=== PATIENT | female | born 1985 | race Caucasian/White ===

== ENCOUNTER 2016-11-05 15:27 | Emergency (ER) | payer BC, OTHER ==
[~2016-11-05] VITALS: Ht 121.9 cm; Wt 66.0 kg
[~2016-11-05 15:27] MED LIST: ADVINUNK; ALBUAER2 INH; BCPILLS PO; CLX20 PO; VERAMIST; [UNRECOGNIZED DRUG - OTHER]
[2016-11-05 15:33] VITALS: TEMP 36.8; Ht 121.9 cm; Wt 66.0 kg
[2016-11-05] MEDS ORDERED: BUPR-267 PO (15:51)
[2016-11-05] MEDS ORDERED: ONDANSETRON INJ 2 MG/ML 2 ML VIAL IV STA (15:55)
[2016-11-05] MEDS ORDERED: SODIUM CHLORIDE 0.9% 1000ML 500 ML IV STA (15:55)
[2016-11-05] MEDS ORDERED: MoRPHine SULFATE 10 MG/ML CARP/VIAL IV PRN (16:00)
--- NOTE | 2016-11-05 16:05 | EMERGENCY ROOM VISIT NOTE ---
History Report prepared by Xiomara: Stan Oliveira Under the Supervision of: Dr. Lc Orantes M.D. First contact with patient: 15:48 Chief Complaint: CARDIAC ASSESSMENT Stated Complaint: CHEST PAIN History of Present Illness The patient is a 31 year old female who presents to the Emergency Room with complaints of persistent chest pain beginning early this morning. She states she woke with her pain around 0400 and took Tums and used her inhaler as she thought this was heartburn. She woke up again after 2 hours and vomited, and again took Tums and used her inhaler but with no relief of her symptoms. She rates her pain a 5/10 in severity but states it worsens with deep breaths or laying down. She notes her pain does not radiate. The patient denies any pain in her heart or anything unusual with her heart over the last few days She admits to having watery diarrhea 2 days ago, and still had diarrhea yesterday. She reports she had 10 bowel movements within 30 minutes, and describes her stool as clear or yellow. She admits to taking 1 antidiarrheal. She denies having any diarrhea today. The patient adds she had a headache yesterday and took 4 Tylenol. She notes she felt nauseated this morning, and has pain with swallowing. She denies any history of gallbladder issues or clots, but admits to a history of irritable bowel syndrome. She takes medications for her thyroid. Source of History: patient Onset: early this morning Position: chest Symptom Intensity: 5/10 in severity, but worsens Quality: other (chest pain) Timing: other (persistent) Modifying Factors (Worsening): other (deep breaths and lying down) Associated Symptoms: + diarrhea, + headache, + nausea Note: The patient has pain with swallowing. Review of Systems See HPI for pertinent positives & negatives. A total of 10 systems reviewed and were otherwise negative. Past Medical & Surgical Medical Problems: (1) History of IBS Family History No pertinent family history stated. Social History Smoking Status: Never Smoker Current/Historical Medications Scheduled Control Pills ( Control Pills), 1 TAB PO DAILY Bupropion Hcl (Bupropion Hcl Er), 15 MG PO QPM Cetirizine (Zyrtec), 10 MG PO QAM Fluticasone Propionate (Nasal) (Flonase Allergy Relief), 2 SPRAY SELENA QPM Levothyroxine Sodium (Synthroid), 75 MCG PO QAM Montelukast Sodium (Singulair), 10 MG PO QPM Multivit/Min/Iron/Fol Ac/Pren ( Vitamin), 1 TAB PO DAILY Omeprazole (Prilosec), 20 MG PO DAILY Ranitidine (Zantac), 150 MG PO BID Scheduled PRN Albuterol (Ventolin), 2 PUFFS INH QID PRN for SOB/Wheezing Oxycodone Ir (Roxicodone Ir), 1-2 TAB PO Q4H PRN for Pain Allergies Coded Allergies: No Known Allergies (Unverified , 11/05/16) Physical Exam Vital Signs Date Time Temp Pulse Resp B/P Pulse Ox O2 Delivery O2 Flow Rate FiO2 11/05/16 17:43 79 11/05/16 17:25 75 16 119/72 100 Room Air 11/05/16 16:12 97 Room Air 11/05/16 15:52 98 Room Air 11/05/16 15:33 36.8 87 20 126/82 97 Room Air Physical Exam GENERAL: Patient is in no acute distress. HEENT: No acute trauma, normocephalic atraumatic, mucous membranes moist, no nasal congestion, no scleral icterus. NECK: No stridor, no adenopathy, no meningismus, trachea is midline. LUNGS: Clear to auscultation bilaterally, no wheeze, no rhonchi, breath sounds equal. HEART: Without murmurs gallops or rubs, regular rate and rhythm. CHEST: Nontender chest wall. ABDOMEN: Soft, tenderness in epigastrium and right upper quadrant, bowel sounds positive, no hernias, no peritonitis. EXTREMITIES: No cyanosis or edema, full range of motion of all the joints without pain or difficulty, no signs for acute trauma. NEUROLOGIC: Oriented x 3, no acute motor or sensory deficits, no focal weakness. SKIN: No rash, no jaundice, no diaphoresis. Medical Decision & Procedures ER Provider Diagnostic Interpretation: X-ray results as stated below per interpretation by me and the radiologist: CHEST ONE VIEW PORTABLE FINDINGS: Lung volumes are normal. Lungs are clear. Pulmonary vascular is normal. Cardiac size is normal. Mediastinal contours are normal. Apparent hazy bibasilar opacities are likely artifactual. There is mild S-shaped scoliosis of the thoracolumbar spine. IMPRESSION: 1. No acute cardiopulmonary findings. 2. Mild S-shaped scoliosis of the thoracolumbar spine. Electronically signed by: Bennett Mccartney M.D. 11/05/2016 4:27 PM Dictated Date/Time: 11/05/2016 4:25 PM ABDOMINAL ULTRASOUND, RIGHT UPPER QUADRANT FINDINGS: Pancreas: The pancreatic tail is obscured by overlying bowel gas. The remaining portions of the pancreas are within normal limits. Liver: Unremarkable. Gallbladder: No gallbladder wall thickening. No gallstones. CBD: 4 mm. Right kidney: No hydronephrosis. IMPRESSION: No significant abnormality identified within the right upper quadrant. Electronically signed by: Rogelio Madrid M.D. 11/05/2016 5:11 PM Dictated Date/Time: 11/05/2016 5:09 PM Laboratory Results 11/05/16 16:05 11/05/16 16:05 Test 11/05/16 16:05 11/05/16 16:09 Red Blood Count 4.67 M/uL (4.2-5.4) Mean Corpuscular Volume 87.2 fL (80-100) Mean Corpuscular Hemoglobin 29.8 pg (25-34) Mean Corpuscular Hemoglobin Concent 34.2 g/dl (32-36) RDW Standard Deviation 41.0 fL (36.4-46.3) RDW Coefficient of Variation 12.8 % (11.5-14.5) Mean Platelet Volume 12.0 fL (7.4-10.4) Prothrombin Time 11.0 SECONDS (9.0-12.0) Prothromb Time International Ratio 1.0 (0.9-1.1) Activated Partial Thromboplast Time 28.5 SECONDS (21.0-31.0) Partial Thromboplastin Ratio 1.1 Anion Gap 11.0 mmol/L (3-11) Est Creatinine Clear Calc Drug Dose 65.2 ml/min Estimated GFR () 126.0 Estimated GFR (Non- 108.7 BUN/Creatinine Ratio 6.6 (10-20) Calcium Level 9.1 mg/dl (8.5-10.1) Total Bilirubin 1.1 mg/dl (0.2-1) Direct Bilirubin 0.2 mg/dl (0-0.2) Aspartate Amino Transf (AST/SGOT) 22 U/L (15-37) Alanine Aminotransferase (ALT/SGPT) 29 U/L (12-78) Alkaline Phosphatase 59 U/L (45-117) Troponin I < 0.015 ng/ml (0-0.045) Total Protein 7.2 gm/dl (6.4-8.2) Albumin 4.0 gm/dl (3.4-5.0) Lipase 61 U/L (73-393) Bedside D-Dimer 439 ng/mlFEU (0-450) Laboratory results reviewed by me. Medications Administered Medications (Trade) Dose Ordered Sig/Jocy Route Start Time Stop Time Status Last Admin Dose Admin Sodium Chloride (Nss 1000ml) 500 ml @ 999 mls/hr Q31M STAT IV 11/05/16 15:55 11/05/16 16:25 DC 11/05/16 16:08 999 MLS/HR Pantoprazole Sodium (Protonix Tab) 40 mg NOW STAT PO 11/05/16 17:44 11/05/16 17:45 DC 11/05/16 17:55 40 MG Ranitidine HCl (zANTac TAB) 150 mg NOW STAT PO 11/05/16 17:44 11/05/16 17:45 DC 11/05/16 17:55 150 MG ECG Indication: chest pain Rate (beats per minute): 88 Rhythm: normal sinus, other (possible old septal infarct) Findings: no acute ischemic change, no ectopy ED Course 1549: The patient was evaluated in room B5. A complete history and physical exam was performed. 1555: Ordered Zofran Inj 4 mg IV, and NSS 500 ml @ 999 mls/hr IV. 1600: Ordered Morphine Sulfate 4 mg IV. 1744: Ordered Ranitidine HCl 150 mg PO, and Protonix Tab 40 mg PO. 1800: Reevaluated the patient. Discussed results and discharge instructions: She verbalized understanding and agreement. The patient is ready for discharge. Medical Decision Differentials include cardiac ischemia, PE, gastritis, pancreatitis, biliary colic, viral illness, and acute cholecystitis. There is no leukocytosis or concerning anemia. No significant electrolyte abnormality, kidney failure, hepatitis or pancreatitis. D-dimer testing is negative. With a negative d-dimer and my low suspicion for PE, I will stop the workup for this diagnosis. Chest x-ray shows no free air, pneumothorax or mediastinal widening. There is no pneumonia. EKG shows a normal sinus rhythm, there is no acute ischemia. Cardiac enzyme testing times one is not suggestive of acute cardiac injury. Gallbladder ultrasound does not show gallstones or acute cholecystitis. The patient received IV saline, IV Zofran and IV morphine. She was given oral Protonix and oral Zantac. The patient's cardiac workup is unremarkable. She has had some diarrhea and stomach upset and now has some epigastric pain on exam. The pain is likely intestinal. She may be having some reflux/esophagitis. She is being discharged on Zantac and Prilosec. She was given a few pain pills to use as needed for breakthrough discomfort. She was encouraged to stick to a very plain and simple diet. If things are worsening, she should return for reassessment. [place] Drug Monitoring Program Search Results: patient reviewed within database, no issues identified Impression Primary Impression: Epigastric abdominal pain Scribe Attestation The scribe's documentation has been prepared under my direction and personally reviewed by me in its entirety. I confirm that the note above accurately reflects all work, treatment, procedures, and medical decision making performed by me. Departure Information Dispostion Home / Self-Care Prescriptions Oxycodone Ir (Roxicodone Ir) 5 Mg Tab 1-2 TAB PO Q4H Y for Pain, #8 TAB Prov: Lc Orantes M.D. 11/05/16 Omeprazole (Prilosec) 20 Mg Capcr 20 MG PO DAILY, #30 CAP Prov: Lc Orantes M.D. 11/05/16 Ranitidine (Zantac) 150 Mg Tab 150 MG PO BID for 14 Days, #28 TAB Prov: Lc Orantes M.D. 11/05/16 Patient Instructions A Signature Page, My [facility] Additional Instructions zantac 2x per day for 2 weeks prilosec daily for 1 month rest bland diet---gatorade, crackers, soup, toast return if worsening oxy ir 1 tab every 4 hours for severe pain lab testing and imaging all looked good today
[2016-11-05 16:12] VITALS: O2SAT 97
[2016-11-05 16:20] LABS: HEMATOCRIT 40.7 % (37-47); MEAN CELL VOLUME 87.2 fL (80-100); MEAN CORPUSCULAR HEMOGLOBIN 29.8 pg (25-34); MEAN CORPUSCULAR HGB CONC 34.2 g/dl (32-36); PLATELET COUNT 177 K/uL (130-400); RED BLOOD COUNT 4.67 M/uL (4.2-5.4); WHITE BLOOD COUNT 4.55 K/uL (4.8-10.8)
[2016-11-05 16:27] LABS: PARTIAL THROMBOPLASTIN RATIO 1.1
--- NOTE | 2016-11-05 16:29 | DIAGNOSTIC IMAGING REPORT ---
CHEST ONE VIEW PORTABLE CLINICAL HISTORY: Chest pain. COMPARISON STUDY: No previous studies for comparison. FINDINGS: Lung volumes are normal. Lungs are clear. Pulmonary vascular is normal. Cardiac size is normal. Mediastinal contours are normal. Apparent hazy bibasilar opacities are likely artifactual. There is mild S-shaped scoliosis of the thoracolumbar spine. IMPRESSION: 1. No acute cardiopulmonary findings. 2. Mild S-shaped scoliosis of the thoracolumbar spine. Electronically signed by: Bennett Mccartney M.D. 11/05/2016 4:27 PM Dictated Date/Time: 11/05/2016 4:25 PM
[2016-11-05 16:46] LABS: ALT/SGPT 29 U/L (12-78); AST/SGOT 22 U/L (15-37); BLOOD UREA NITROGEN 5 mg/dl (7-18); BUN/CREATININE RATIO 6.6 (10-20); CALCIUM 9.1 mg/dl (8.5-10.1); CARBON DIOXIDE 23 mmol/L (21-32); CHLORIDE 109 mmol/L (98-107); CREATININE 0.74 mg/dl (0.60-1.20); GLUCOSE 78 mg/dl (70-99); SODIUM 143 mmol/L (136-145)
[2016-11-05 16:50] LABS: ALKALINE PHOSPHATASE 59 U/L (45-117)
--- NOTE | 2016-11-05 17:13 | DIAGNOSTIC IMAGING REPORT ---
ABDOMINAL ULTRASOUND, RIGHT UPPER QUADRANT HISTORY: Epigastric pain.. COMPARISON: None. FINDINGS: Pancreas: The pancreatic tail is obscured by overlying bowel gas. The remaining portions of the pancreas are within normal limits. Liver: Unremarkable. Gallbladder: No gallbladder wall thickening. No gallstones. CBD: 4 mm. Right kidney: No hydronephrosis. IMPRESSION: No significant abnormality identified within the right upper quadrant. Electronically signed by: Rogelio Madrid M.D. 11/05/2016 5:11 PM Dictated Date/Time: 11/05/2016 5:09 PM
[2016-11-05 17:25] VITALS: BP 119/72; O2SAT 100
[2016-11-05 17:43] VITALS: PULSE 79
[2016-11-05] MEDS ORDERED: RANITIDINE HCL 150 MG TAB PO STA (17:44)
[2016-11-05] MEDS ORDERED: PANTOprazole SOD 40 MG TAB PO STA (17:44)
[2016-11-05] MEDS ORDERED: ZNTT/150 PO (17:48)
[2016-11-05] MEDS ORDERED: OXYC1TAB3 PO (17:48)
[2016-11-05] MEDS ORDERED: PRLSR20 PO (17:48)
[2017-03-31] MEDS ORDERED: PRENTAB26 PO (15:51)
[2017-03-31] MEDS ORDERED: FLUT0.15 NAE (15:51)
[2017-03-31] MEDS ORDERED: MONT1TAB3 PO (15:51)
[2017-03-31] MEDS ORDERED: LEVO75TA PO (15:51)
[2017-03-31] MEDS ORDERED: CETI10TA84 PO (15:51)
[2017-04-01] MEDS ORDERED: OXYC1TAB3 PO (01:11)
== END 2016-11-05 17:55 | disposition home or self-care (01) ==
LOC: C.EDB 15:28
DX: R10.13 Epigastric pain (principal); K58.9 Irritable bowel syndrome, unspecified; Z79.899 Other long term (current) drug therapy

== ENCOUNTER 2017-03-31 18:50 | Emergency (ER) | payer BC, OTHER ==
[~2017-03-31] VITALS: Ht 162.6 cm; Wt 72.3 kg
[~2017-03-31 18:50] MED LIST changes: -ADVINUNK; +BUPR-267 PO; +CETI10TA84 PO; -CLX20 PO; +FLUT0.15 NAE; +LEVO75TA PO; +MONT1TAB3 PO; +OXYC1TAB3 PO; +PRENTAB26 PO; +PRLSR20 PO; -VERAMIST; -[UNRECOGNIZED DRUG - OTHER]
[2017-03-31 18:58] VITALS: TEMP 37; Ht 162.6 cm; Wt 72.3 kg
[2017-03-31 19:22] LABS: BASO % 0.2 %; BASO ABS # 0.02 K/uL (0-0.2); COMPLETE YES; EOS % 2.2 %; IG% 0.4 %; LYMPH % 11.2 %; LYMPH ABS # 1.45 K/uL (1.2-3.4); MEAN CELL VOLUME 88.3 fL (80-100); MEAN PLATELET VOLUME 11.2 fL (7.4-10.4); MONO % 2.2 %; NEUT % 83.8 %; PLATELET COUNT 218 K/uL (130-400); RED BLOOD COUNT 4.53 M/uL (4.2-5.4); WHITE BLOOD COUNT 12.92 K/uL (4.8-10.8)
[2017-03-31 19:26] LABS: URINE APPEARANCE TURBID (CLEAR); URINE BILIRUBIN NEG (NEG); URINE COLOR YELLOW; URINE EPITHELIAL CELL AUTO 20-30 /lpf (0-5); URINE NITRITE POS (NEG); UROBILINOGEN NEG (NEG); ZZUR CULT IF INDIC CLEAN CATCH YES
[2017-03-31] MEDS ORDERED: SODIUM CHLORIDE 0.9% 1000ML 1,000 ML IV STA (19:28)
[2017-03-31 19:29] LABS: MANUAL MICROSCOPIC REQUIRED? NO; REVIEW REQ? NO
[2017-03-31] MEDS ORDERED: HYDROmorphone INJ 0.5 MG/0.5 ML SYR IV STA ×2 (19:36→22:57)
[2017-03-31] MEDS ORDERED: ONDANSETRON 8 MG/54 ML D5W IV STA (19:36)
[2017-03-31] MEDS ORDERED: SODIUM CHLORIDE 0.9% 1000ML 2,000 ML IV STA (19:36)
[2017-03-31] MEDS ORDERED: KETOROLAC TROMETHAMINE 30 MG/ML VIAL IV STA (19:36)
[2017-03-31 19:41] LABS: BUN/CREATININE RATIO 10.6 (10-20); CALCIUM 8.6 mg/dl (8.5-10.1); CREATININE 1.2 mg/dl (0.60-1.20); POTASSIUM 3.9 mmol/L (3.5-5.1)
[2017-03-31 19:44] LABS: ALB/GLOB RATIO 1.2 (0.9-2)
[2017-03-31] MEDS ORDERED: BUPRTAB51 PO (20:23)
[2017-03-31] MEDS ORDERED: VNTHFA/IN INH (20:23)
[2017-03-31] MEDS ORDERED: SERT-234 PO (20:24)
--- NOTE | 2017-03-31 20:50 | DIAGNOSTIC IMAGING REPORT ---
ABDOMEN AND PELVIS CT WITHOUT CONTRAST CT DOSE: 625.33 mGy.cm HISTORY: Flank pain left flank pain TECHNIQUE: Multiaxial CT images of the abdomen and pelvis were performed without the use of intravenous and oral contrast according to the standard department stone protocol. COMPARISON STUDY: None. FINDINGS: Lung bases are clear. Liver spleen and pancreas are unremarkable in terms of general morphology. No evidence for gastric distention. Right kidney is negative for calcification or hydronephrosis. Mild fullness left renal collecting system is present. There is trace amount of left renal perinephric infiltrative change. There is a 4 mm obstructing calculus mid left ureter best seen transaxial image 78. Bowel pattern is considered nonobstructive. The appendix is normal. There is an increase in fecal load within the rectosigmoid. IMPRESSION: 1. 4 mm obstructing calculus mid left ureter. 2. Mild left renal hydroureteronephrosis. Electronically signed by: Dami Keenan M.D. 03/31/2017 8:48 PM Dictated Date/Time: 03/31/2017 8:46 PM
[2017-03-31 21:39] LABS: URINE APPEARANCE CLEAR (CLEAR); URINE BILIRUBIN NEG (NEG); URINE COLOR YELLOW; URINE NITRITE NEG (NEG); URINE PH 7.5 (4.5-7.5); URINE SPECIFIC GRAVITY 1.007 (1.000-1.030); UROBILINOGEN NEG (NEG); ZZUR CULT IF INDIC CLEAN CATCH NO
[2017-03-31 21:42] LABS: MANUAL MICROSCOPIC REQUIRED? NO; REVIEW REQ? NO
[2017-03-31] MEDS ORDERED: PHENERGAN 25MG HOMEPACK PO ONE (23:00)
[2017-03-31] MEDS ORDERED: OXYCODONE IR HOME PACK PO ONE (23:00)
[2017-03-31 23:53] VITALS: BP 100/79; PULSE 107; O2SAT 95
[2017-04-01] MEDS ORDERED: OXYC1TAB3 PO (01:11)
--- NOTE | 2017-04-01 01:42 | EMERGENCY ROOM VISIT NOTE ---
History Report prepared by Xiomara: Danyel Solorio Under the Supervision of: Dr. Ranulfo Mcnulty M.D. First contact with patient: 19:27 Chief Complaint: ABDOMINAL PAIN Stated Complaint: ABD PAIN Nursing Triage Summary: Pt arrives via ALS. Pt c/o LLQ/LUQ abd pain that started at approx 4pm, pain on palpation, had a normal BM and pain still present. Pt states she has a hx of IBS and usually after a BM the pain goes away, this time it did not. Pt did take her own oxycontin (2). Pt received 4 mg IVP Zofran prehospital History of Present Illness The patient is a 31 year old female who presents to the Emergency Room by EMS with complaints of constant left sided abdominal pain beginning 3.5 hours ago. She has no history of similar symptoms. She notes that she has a history of IBS but states that it does not feel like her current symptoms. The patient took Tylenol and Benadryl for her symptoms but has seen no relief. She notes that she also took an Oxycodone pill that she had left over for her pain, but vomited shortly afterward. Pt denies LOC, headache, fevers, chills, diaphoresis , visual changes, neck pain, chest pain, breathing difficulties, melena, hematochezia, urinary symptoms, numbness, weakness, lymphadenopathy, rash, or other complaints. She has no previous surgeries. She does not believe that she is . Source of History: patient Onset: 3.5 hours ago Position: abdomen (left side) Timing: constant Associated Symptoms: + vomiting, No fevers Review of Systems See HPI for pertinent positives and negatives. A total of ten systems were reviewed and were otherwise negative. Past Medical & Surgical Medical Problems: (1) History of IBS Family History Kidney stone Social History Smoking Status: Never Smoker Current/Historical Medications Scheduled Bupropion Hcl (Wellbutrin Xl), 300 MG PO QPM Cetirizine (Zyrtec), 40 MG PO QAM Fluticasone Propionate (Nasal) (Flonase Allergy Relief), 2 SPRAYS SELENA QPM Levothyroxine Sodium (Synthroid), 75 MCG PO QAM Montelukast Sodium (Singulair), 10 MG PO QPM Multivit/Min/Iron/Fol Ac/Pren ( Vitamin), 1 TAB PO DAILY Sertraline (Zoloft), 100 MG PO HS Scheduled PRN Albuterol Hfa (Ventolin Hfa), 2 PUFFS INH QID PRN for SOB/Wheezing Oxycodone Ir (Roxicodone Ir), 1-2 TAB PO Q4H PRN for Pain Allergies Coded Allergies: No Known Allergies (Unverified , 11/05/16) Physical Exam Vital Signs Date Time Temp Pulse Resp B/P (MAP) Pulse Ox O2 Delivery O2 Flow Rate FiO2 03/31/17 23:53 107 20 100/79 95 03/31/17 22:51 107 20 116/73 98 Room Air 03/31/17 20:32 73 17 110/69 99 03/31/17 18:58 37.0 74 16 116/91 100 Room Air Physical Exam GENERAL: Awake, alert, uncomfortable-appearing, in no distress HENT: Normocephalic, atraumatic. Oropharynx unremarkable. EYES: Normal conjunctiva. Sclera non-icteric. NECK: Supple. No nuchal rigidity. FROM. No JVD. RESPIRATORY: Clear to auscultation. CARDIAC: Regular rate, normal rhythm. Extremities warm and well perfused. Pulses equal. ABDOMEN: Soft, non-distended. No tenderness to palpation. No rebound or guarding. No masses. RECTAL: Deferred. MUSCULOSKELETAL: Chest examination reveals no tenderness. The back is symmetrical on inspection without obvious abnormality. Left CVA and left flank tenderness to palpation. No joint edema. LOWER EXTREMITIES: Calves are equal size bilaterally and non-tender. No edema. No discoloration. NEURO: Normal sensorium. No sensory or motor deficits noted. SKIN: No rash or jaundice noted. Medical Decision & Procedures ER Provider Diagnostic Interpretation: CT: Radiology results as stated below per my review and radiologist interpretation ABDOMEN AND PELVIS CT WITHOUT CONTRAST FINDINGS: Lung bases are clear. Liver spleen and pancreas are unremarkable in terms of general morphology. No evidence for gastric distention. Right kidney is negative for calcification or hydronephrosis. Mild fullness left renal collecting system is present. There is trace amount of left renal perinephric infiltrative change. There is a 4 mm obstructing calculus mid left ureter best seen transaxial image 78. Bowel pattern is considered nonobstructive. The appendix is normal. There is an increase in fecal load within the rectosigmoid. IMPRESSION: 1. 4 mm obstructing calculus mid left ureter. 2. Mild left renal hydroureteronephrosis. Electronically signed by: Dami Keenan M.D. 03/31/2017 8:48 PM Laboratory Results 03/31/17 19:05 Red Blood Count 4.53, Mean Corpuscular Volume 88.3, Mean Corpuscular Hemoglobin 30.0, Mean Corpuscular Hemoglobin Concent 34.0, Mean Platelet Volume 11.2, Neutrophils (%) (Auto) 83.8, Lymphocytes (%) (Auto) 11.2, Monocytes (%) (Auto) 2.2, Eosinophils (%) (Auto) 2.2, Basophils (%) (Auto) 0.2, Neutrophils # (Auto) 10.84, Lymphocytes # (Auto) 1.45, Monocytes # (Auto) 0.28, Eosinophils # (Auto) 0.28, Basophils # (Auto) 0.02 03/31/17 19:05 Test 03/31/17 00:00 03/31/17 19:05 03/31/17 21:24 Urine Test NEG (NEG) White Blood Count 12.92 K/uL (4.8-10.8) Red Blood Count 4.53 M/uL (4.2-5.4) Hemoglobin 13.6 g/dL (12.0-16.0) Hematocrit 40.0 % (37-47) Mean Corpuscular Volume 88.3 fL (80-100) Mean Corpuscular Hemoglobin 30.0 pg (25-34) Mean Corpuscular Hemoglobin Concent 34.0 g/dl (32-36) Platelet Count 218 K/uL (130-400) Mean Platelet Volume 11.2 fL (7.4-10.4) Neutrophils (%) (Auto) 83.8 % Lymphocytes (%) (Auto) 11.2 % Monocytes (%) (Auto) 2.2 % Eosinophils (%) (Auto) 2.2 % Basophils (%) (Auto) 0.2 % Neutrophils # (Auto) 10.84 K/uL (1.4-6.5) Lymphocytes # (Auto) 1.45 K/uL (1.2-3.4) Monocytes # (Auto) 0.28 K/uL (0.11-0.59) Eosinophils # (Auto) 0.28 K/uL (0-0.5) Basophils # (Auto) 0.02 K/uL (0-0.2) RDW Standard Deviation 42.0 fL (36.4-46.3) RDW Coefficient of Variation 13.0 % (11.5-14.5) Immature Granulocyte % (Auto) 0.4 % Immature Granulocyte # (Auto) 0.05 K/uL (0.00-0.02) Anion Gap 10.0 mmol/L (3-11) Est Creatinine Clear Calc Drug Dose 66.8 ml/min Estimated GFR () 70.2 Estimated GFR (Non- 60.6 BUN/Creatinine Ratio 10.6 (10-20) Calcium Level 8.6 mg/dl (8.5-10.1) Total Bilirubin 0.8 mg/dl (0.2-1) Aspartate Amino Transf (AST/SGOT) 21 U/L (15-37) Alanine Aminotransferase (ALT/SGPT) 49 U/L (12-78) Alkaline Phosphatase 78 U/L (45-117) Total Protein 6.7 gm/dl (6.4-8.2) Albumin 3.7 gm/dl (3.4-5.0) Globulin 3.0 gm/dl (2.5-4.0) Albumin/Globulin Ratio 1.2 (0.9-2) Lipase 117 U/L (73-393) Urine Color YELLOW Urine Appearance CLEAR (CLEAR) Urine pH 7.5 (4.5-7.5) Urine Specific [place] 1.007 (1.000-1.030) Urine Protein NEG (NEG) Urine Glucose (UA) NEG (NEG) Urine Ketones NEG (NEG) Urine Occult Blood TRACE (NEG) Urine Nitrite NEG (NEG) Urine Bilirubin NEG (NEG) Urine Urobilinogen NEG (NEG) Urine Leukocyte Esterase TRACE (NEG) Urine WBC (Auto) 1-5 /hpf (0-5) Urine RBC (Auto) 0-4 /hpf (0-4) Urine Hyaline Casts (Auto) 0 /lpf (0-5) Urine Epithelial Cells (Auto) 10-20 /lpf (0-5) Urine Bacteria (Auto) NEG (NEG) Laboratory results reviewed by me Medications Administered Medications (Trade) Dose Ordered Sig/Jocy Route Start Time Stop Time Status Last Admin Dose Admin Ketorolac Tromethamine (Toradol Inj) 30 mg NOW STAT IV 03/31/17 19:36 03/31/17 19:38 DC 03/31/17 19:50 30 MG Ondansetron HCl (Zofran 8mg Iv) 8 mg NOW STAT IV 03/31/17 19:36 03/31/17 19:38 DC 03/31/17 19:49 8 MG Hydromorphone HCl (Dilaudid Inj) 0.5 mg NOW STAT IV 03/31/17 19:36 03/31/17 19:38 DC 03/31/17 19:51 0.5 MG Sodium Chloride 2,000 ml @ 999 mls/hr Q2H1M STAT IV 03/31/17 19:36 03/31/17 21:36 DC 03/31/17 19:49 999 MLS/HR Oxycodone HCl (Roxicodone Immediate Rel 5MG Home Pack) 1 homepack UD ONCE PO 03/31/17 23:00 03/31/17 23:01 DC 03/31/17 23:06 1 HOMEPACK Promethazine HCl (Phenergan 25MG Home Pack) 1 homepack UD ONCE PO 03/31/17 23:00 03/31/17 23:01 DC 03/31/17 23:05 1 HOMEPACK Hydromorphone HCl (Dilaudid Inj) 0.5 mg NOW STAT IV 03/31/17 22:57 03/31/17 22:59 DC 03/31/17 23:04 0.5 MG ED Course 1935: The patient was evaluated in room A11B. A complete history and physical exam was performed. 1927: Ordered Sodium Chloride 1000 ml @ 999 mls/hr IV, Sodium Chloride 2000 ml @ 999 mls/hr IV, Dilaudid Inj 0.5 mg IV, Zofran 8 mg IV, Toradol Inj 30 mg IV. 2056: I reassessed the patient. She is feeling much better. 2256: Ordered Dilaudid Inj 0.5 mg IV. 2299: Ordered Phenergan 25 mg home pack PO, Roxicodone Immediate Rel 5 mg home pack PO. 0: I reevaluated the patient. Discussed results and discharge instructions: she verbalized understanding and agreement. The patient is ready for discharge. Medical Decision Blood pressure screening: Patient was found to have an elevated blood pressure and was referred to their primary doctor for recheck and further treatment. Medication Reconciliation: I attest that I have personally reviewed the patient' s current medication list Triage Nursing notes reviewed. The patient's presentation and history were concerning for flank pain. Etiologies such as renal colic, UTI, , appendicitis, diverticulitis, mesenteric ischemia, aortic pathology, infections, inflammatory bowel disease, PUD, biliary pathology,as well as others were entertained. The patient was uncomfortable. She was hydrated. She was given Zofran, Toradol , and Dilaudid after test was negative. Urine dipstick was very concerning for possible infection. The patient had blood work obtained. She had a leukocytosis. She underwent CT imaging. The patient had a kidney stone. This would fit with her history of sudden onset of pain. Remainder of her blood work was unremarkable. She did not give a clean catch specimen initially. I did ask for her to provide a second specimen with adequate preparation. The second specimen did not reveal findings anywhere near the first and I believe the first specimen was contaminated significantly. The patient was given a second dose of Dilaudid and observed. She did very well. She was given a prescription home pack of oxycodone and Phenergan. The patient was given a prescription for additional oxycodone and referred to urology. By the evaluation outlined above other emergent etiologies such as those listed in the differential, as well as others, were deemed relatively unlikely. The patient was educated about the findings as listed above. All questions were answered and the patient was pleased with the treatment. Return instructions were outlined and the patient was discharged in stable condition. The patient was referred to [facility] urology for follow-up for a recheck of the current condition. [place] Drug Monitoring Program Search Results: patient reviewed within database, no issues identified Impression Primary Impression: Left flank pain Additional Impression: Ureterolithiasis Scribe Attestation The scribe's documentation has been prepared under my direction and personally reviewed by me in its entirety. I confirm that the note above accurately reflects all work, treatment, procedures, and medical decision making performed by me. Departure Information Dispostion Home / Self-Care Prescriptions Oxycodone Ir (Roxicodone Ir) 5 Mg Tab 1-2 TAB PO Q4H Y for Pain, #12 TAB Prov: Ranulfo Mcnulty MD 04/01/17 Referrals Tyelr Cheatham M.D. (PCP) Forms HOME CARE DOCUMENTATION FORM, IMPORTANT VISIT INFORMATION Patient Instructions [facility] Additional Instructions KIDNEY STONE INSTRUCTIONS: Oxycodone Immediate Release (OxyIR) 5mg: Take 1-2 pills every four hours for pain. Avoid alcohol, operating machinery or dangerous equipment, working on ladders or roofs, DRIVING, or situations where being under the influence may be dangerous. It is recommended to use an [id number] stool softener such as Colace, 100mg twice daily while taking this medication to avoid constipation. Phenergan 25mg: Take one every six hours as needed for nausea. Avoid alcohol, operating machinery or dangerous equipment, working on ladders or roofs, DRIVING , or situations where being under the influence may be dangerous. Ibuprofen(Motrin, Advil) may be used for fever or pain. Use 600mg every six hours as needed. Take with food. Avoid using more than 2400mg in a 24 hour period. Do not use 2400mg per day for more than three consecutive days without physician direction. Prolonged inappropriate use can lead to stomach upset or ulcers. This medication can be taken if you need to drive, work, or perform activities which may be dangerous when taking narcotic pain medication. (AND/OR) Acetaminophen(Tylenol) may be used for fever or pain. Use 1000mg every six hours as needed. Avoid using more than 4000mg in a 24 hour period. This medication can be taken if you need to drive, work, or perform activities which may be dangerous when taking narcotic pain medication. Strain your urine and collect all the stones or debris for the urologists. Rest and avoid strenuous activity until your stone passes and symptoms resolve. Drink plenty of fluids. Return to the ER for worsening abdominal or back pain, vomiting, fevers, passing out, or as needed. Follow up with [facility] tomorrow, [phone], to arrange a visit. Problem Qualifiers
== END 2017-03-31 23:55 | disposition home or self-care (01) ==
LOC: EDBD 18:50 → C.EDA 19:01
DX: N20.1 Calculus of ureter (principal); K58.9 Irritable bowel syndrome, unspecified; Z79.899 Other long term (current) drug therapy; Z84.1 Family history of disorders of kidney and ureter

== ENCOUNTER 2017-06-24 03:59 | Emergency (ER) | payer BC, OTHER ==
[~2017-06-24] VITALS: Ht 162.6 cm; Wt 68.9 kg
[~2017-06-24 03:59] MED LIST changes: -ALBUAER2 INH; -BCPILLS PO; -BUPR-267 PO; +BUPRTAB51 PO; -PRLSR20 PO; +SERT-234 PO; +VNTHFA/IN INH
[2017-06-24 04:03] VITALS: TEMP 36.6; Ht 162.6 cm; Wt 68.9 kg
[2017-06-24 04:33] LABS: BASO % 0.2 %; BASO ABS # 0.02 K/uL (0-0.2); COMPLETE YES; EOS % 4.3 %; HEMATOCRIT 42.1 % (37-47); IG% 0.3 %; LYMPH % 17.5 %; LYMPH ABS # 1.62 K/uL (1.2-3.4); MEAN CORPUSCULAR HEMOGLOBIN 29.3 pg (25-34); MEAN CORPUSCULAR HGB CONC 32.5 g/dl (32-36); MEAN PLATELET VOLUME 11.3 fL (7.4-10.4); MONO % 8.1 %; NEUT % 69.6 %; PLATELET COUNT 228 K/uL (130-400); RED BLOOD COUNT 4.68 M/uL (4.2-5.4); WHITE BLOOD COUNT 9.27 K/uL (4.8-10.8)
[2017-06-24 04:53] LABS: BUN/CREATININE RATIO 14.5 (10-20); CALCIUM 9.9 mg/dl (8.5-10.1); CREATININE 0.69 mg/dl (0.60-1.20); POTASSIUM 3.6 mmol/L (3.5-5.1)
[2017-06-24 04:57] LABS: URINE APPEARANCE CLEAR (CLEAR); URINE BILIRUBIN NEG (NEG); URINE COLOR YELLOW; URINE EPITHELIAL CELL AUTO 20-30 /lpf (0-5); URINE NITRITE NEG (NEG); URINE PH 6.5 (4.5-7.5); URINE SPECIFIC GRAVITY 1.024 (1.000-1.030); UROBILINOGEN NEG (NEG); ZZUR CULT IF INDIC CLEAN CATCH NO
[2017-06-24 05:00] LABS: MANUAL MICROSCOPIC REQUIRED? NO; REVIEW REQ? YES
--- NOTE | 2017-06-24 05:39 | EMERGENCY ROOM VISIT NOTE ---
History First contact with patient: 04:06 Chief Complaint: ED VAG BLEEDING Stated Complaint: 9 WKS ,BLEEDING,VOMITING History of Present Illness The patient is a 32 year old female who presents to the Emergency Room with complaints of vaginal bleeding. The patient states she is approximately 9 weeks . She says she woke up 45 minutes ago had a small amount of blood in her underwear. The bleeding has since stopped. She reports nausea and has had 2 episodes of vomiting this morning. She follows with [facility]. This is her first . She denies any other complications with the so far. She denies any abdominal pain or urinary symptoms. She denies any history of bleeding disorders. Review of Systems A complete 10 point review of systems was reviewed with the patient with pertinent positives and negatives as per history of present illness. All else were negative. Past Medical/Surgical History Medical Problems: (1) History of IBS Family History Kidney stone Social History Smoking Status: Never Smoker Current/Historical Medications Scheduled Bupropion Hcl (Wellbutrin Xl), 300 MG PO QPM Cetirizine (Zyrtec), 40 MG PO QAM Levothyroxine Sodium (Synthroid), 75 MCG PO QAM Montelukast Sodium (Singulair), 10 MG PO QPM Multivit/Min/Iron/Fol Ac/Pren ( Vitamin), 1 TAB PO DAILY Sertraline (Zoloft), 100 MG PO HS Scheduled PRN Albuterol Hfa (Ventolin Hfa), 2 PUFFS INH QID PRN for SOB/Wheezing Physical Exam Vital Signs Date Time Temp Pulse Resp B/P (MAP) Pulse Ox O2 Delivery O2 Flow Rate FiO2 06/24/17 07:33 79 16 115/74 98 Room Air 06/24/17 06:15 88 18 119/75 99 Room Air 06/24/17 04:03 36.6 80 20 124/75 99 Room Air Physical Exam VITALS: Vitals are noted on the nurse's note and reviewed by myself. Vital signs stable. GENERAL: This is a 32-year-old female, in no acute distress, nondiaphoretic, well-developed well-nourished. HEART: Regular rate and rhythm without murmurs gallops or rubs. LUNGS: Clear to auscultation bilaterally without wheezes, rales or rhonchi. ABDOMEN: Positive bowel sounds x 4. Soft, nontender to palpation. NEURO: Patient was alert and oriented to person place and time. Medical Decision & Procedures ER Provider Diagnostic Interpretation: TRANSVAGINAL HISTORY: 32 years-old Female 9 wks , vaginal bleeding COMPARISON: None available TECHNIQUE: Multiple real-time sonographic images of the deep pelvic structures were obtained transabdominally and transvaginally assessing grayscale appearance, color Doppler flow and M-mode analysis. FINDINGS: TRANSABDOMINAL: Anteflexed gravid uterus is seen, 9.5 x 5.1 x 6.4 cm. Intrauterine gestational sac is seen measuring 3.5 cm, correlating with estimated gestational age of 8 weeks and 5 days. Yolk sac is noted, 0.4 cm in diameter. pole is seen as described below. Right ovary is seen, 2.9 x 3.6 x 1.6 cm. Cystic lesion of the right ovary is noted, 1.1 x 0.9 x 1.2 cm. Arterial inflow and venous outflow was documented within the right ovary. Left ovary is seen, 1.9 x 2.5 x 1.9 cm with arterial inflow documented. TRANSVAGINAL: Uterus measures 9.4 x 5.4 x 7.0 cm. A single yolk sac is seen, 0.5 cm. Additionally, there is a single chorion noted. Gestational sac measures 3.5 cm, correlating with estimated gestational age of 8 weeks and 4 days. There are 3 separate fetus is noted within a single chorion. Baby A has a crown-rump length of 2.1 cm, correlating with estimated gestational age of 8 weeks and 5 days. heart rate measures 173 bpm. Baby B has a crown-rump length of 1.0 cm, correlating with estimated gestational age of 7 weeks and 1 day. heart rate measured at 181 bpm. There is a small cystic structure, 3 mm adjacent to baby B seen on image 95 of 150 which is indeterminate. Baby C has a crown-rump length of 1.0 cm correlating with estimated gestational age of 7 weeks and 0 days. heart rate is measured at 181 bpm. Right ovary measures 2.6 x 1.4 x 3.5 cm with arterial inflow and venous outflow documented. Follicle of the right ovary is seen, 1.3 x 1.2 x 1.0 cm. Probable corpus luteum on the right is seen, 2.0 x 1.6 x 2.6 cm. Left ovary measures 2.1 x 1.2 x 2.7 cm with follicles noted. Arterial inflow and venous outflow is seen on the left. IMPRESSION: 1. Intrauterine gestational sac is noted with 3 living fetuses which appear to be contained with a single chorion with a single yolk sac present. There is a small cystic structure adjacent to baby B which may reflect a second yolk sac. These findings suggest monoamnionic monochorionic or alternatively a diamniotic monochorionic triplet gestation. Baby A is considerably larger than baby B and C. Close follow-up with high risk obstetric monitoring and follow-up pelvic ultrasound is needed . 2. Right corpus luteum, 2.6 cm. No evidence of ovarian torsion. Laboratory Results 06/24/17 04:20 Red Blood Count 4.68, Mean Corpuscular Volume 90.0, Mean Corpuscular Hemoglobin 29.3, Mean Corpuscular Hemoglobin Concent 32.5, Mean Platelet Volume 11.3, Neutrophils (%) (Auto) 69.6, Lymphocytes (%) (Auto) 17.5, Monocytes (%) (Auto) 8.1, Eosinophils (%) (Auto) 4.3, Basophils (%) (Auto) 0.2, Neutrophils # (Auto) 6.45, Lymphocytes # (Auto) 1.62, Monocytes # (Auto) 0.75, Eosinophils # (Auto) 0.40, Basophils # (Auto) 0.02 06/24/17 04:20 Test 06/24/17 04:20 06/24/17 04:40 White Blood Count 9.27 K/uL (4.8-10.8) Red Blood Count 4.68 M/uL (4.2-5.4) Hemoglobin 13.7 g/dL (12.0-16.0) Hematocrit 42.1 % (37-47) Mean Corpuscular Volume 90.0 fL (80-100) Mean Corpuscular Hemoglobin 29.3 pg (25-34) Mean Corpuscular Hemoglobin Concent 32.5 g/dl (32-36) Platelet Count 228 K/uL (130-400) Mean Platelet Volume 11.3 fL (7.4-10.4) Neutrophils (%) (Auto) 69.6 % Lymphocytes (%) (Auto) 17.5 % Monocytes (%) (Auto) 8.1 % Eosinophils (%) (Auto) 4.3 % Basophils (%) (Auto) 0.2 % Neutrophils # (Auto) 6.45 K/uL (1.4-6.5) Lymphocytes # (Auto) 1.62 K/uL (1.2-3.4) Monocytes # (Auto) 0.75 K/uL (0.11-0.59) Eosinophils # (Auto) 0.40 K/uL (0-0.5) Basophils # (Auto) 0.02 K/uL (0-0.2) RDW Standard Deviation 42.0 fL (36.4-46.3) RDW Coefficient of Variation 12.9 % (11.5-14.5) Immature Granulocyte % (Auto) 0.3 % Immature Granulocyte # (Auto) 0.03 K/uL (0.00-0.02) Anion Gap 6.0 mmol/L (3-11) Est Creatinine Clear Calc Drug Dose 112.6 ml/min Estimated GFR () 134.4 Estimated GFR (Non- 116.0 BUN/Creatinine Ratio 14.5 (10-20) Calcium Level 9.9 mg/dl (8.5-10.1) Total Bilirubin 0.9 mg/dl (0.2-1) Aspartate Amino Transf (AST/SGOT) 18 U/L (15-37) Alanine Aminotransferase (ALT/SGPT) 32 U/L (12-78) Alkaline Phosphatase 71 U/L (45-117) Total Protein 7.0 gm/dl (6.4-8.2) Albumin 3.5 gm/dl (3.4-5.0) Globulin 3.5 gm/dl (2.5-4.0) Albumin/Globulin Ratio 1.0 (0.9-2) Human Chorionic Gonadotropin, Quant [id number] mIU/mL Urine Color YELLOW Urine Appearance CLEAR (CLEAR) Urine pH 6.5 (4.5-7.5) Urine Specific [place] 1.024 (1.000-1.030) Urine Protein NEG (NEG) Urine Glucose (UA) NEG (NEG) Urine Ketones NEG (NEG) Urine Occult Blood 2+ (NEG) Urine Nitrite NEG (NEG) Urine Bilirubin NEG (NEG) Urine Urobilinogen NEG (NEG) Urine Leukocyte Esterase NEG (NEG) Urine WBC (Auto) 1-5 /hpf (0-5) Urine RBC (Auto) 0-4 /hpf (0-4) Urine Hyaline Casts (Auto) 1-5 /lpf (0-5) Urine Epithelial Cells (Auto) 20-30 /lpf (0-5) Urine Bacteria (Auto) NEG (NEG) Medical Decision Differential diagnosis includes threatened miscarriage, spontaneous , first trimester bleeding, placenta previa, among others. The patient was evaluated as above. Labs were unremarkable. Beta hCG is within an appropriate level for the patient's reported gestational age. Ultrasound was performed and showed a triplet , which the patient was previously unaware of. The patient was informed of this. She has not had any further bleeding since arriving in the emergency department. All 3 of the fetuses had heartbeats. The patient sees [facility] and was encouraged to follow up today for an appointment. She will need referral to a highway commissioner. She was encouraged to return here if she has any further concerning symptoms. She verbalized her understanding and was discharged home in good condition. The patient's case was reviewed with Dr. Larson, ED attending physician, who agreed with my assessment and treatment plan. Medication Reconcilliation Current Medication List: was personally reviewed by tn Blood Pressure Screening Patient's blood pressure: Normal blood pressure Impression Primary Impression: Triplet in first trimester Additional Impression: Vaginal bleeding in Departure Information Dispostion Home / Self-Care Condition GOOD Referrals Tyler Cheatham M.D. (PCP) Canan. Degroot MD Patient Instructions My [facility] Additional Instructions Follow-up with [facility] today if possible. Pelvic rest: Nothing in the vagina (tampons, sexual intercourse) until cleared by [facility]. Return here for worsening bleeding, abdominal pain, or any other new/concerning symptoms. Problem Qualifiers Primary Impression: Triplet in first trimester
--- NOTE | 2017-06-24 07:15 | DIAGNOSTIC IMAGING REPORT ---
TRANSVAGINAL HISTORY: 32 years-old Female 9 wks , vaginal bleeding COMPARISON: None available TECHNIQUE: Multiple real-time sonographic images of the deep pelvic structures were obtained transabdominally and transvaginally assessing grayscale appearance, color Doppler flow and M-mode analysis. FINDINGS: TRANSABDOMINAL: Anteflexed gravid uterus is seen, 9.5 x 5.1 x 6.4 cm. Intrauterine gestational sac is seen measuring 3.5 cm, correlating with estimated gestational age of 8 weeks and 5 days. Yolk sac is noted, 0.4 cm in diameter. pole is seen as described below. Right ovary is seen, 2.9 x 3.6 x 1.6 cm. Cystic lesion of the right ovary is noted, 1.1 x 0.9 x 1.2 cm. Arterial inflow and venous outflow was documented within the right ovary. Left ovary is seen, 1.9 x 2.5 x 1.9 cm with arterial inflow documented. TRANSVAGINAL: Uterus measures 9.4 x 5.4 x 7.0 cm. A single yolk sac is seen, 0.5 cm. Additionally, there is a single chorion noted. Gestational sac measures 3.5 cm, correlating with estimated gestational age of 8 weeks and 4 days. There are 3 separate fetus is noted within a single chorion. Baby A has a crown-rump length of 2.1 cm, correlating with estimated gestational age of 8 weeks and 5 days. heart rate measures 173 bpm. Baby B has a crown-rump length of 1.0 cm, correlating with estimated gestational age of 7 weeks and 1 day. heart rate measured at 181 bpm. There is a small cystic structure, 3 mm adjacent to baby B seen on image 95 of 150 which is indeterminate. Baby C has a crown-rump length of 1.0 cm correlating with estimated gestational age of 7 weeks and 0 days. heart rate is measured at 181 bpm. Right ovary measures 2.6 x 1.4 x 3.5 cm with arterial inflow and venous outflow documented. Follicle of the right ovary is seen, 1.3 x 1.2 x 1.0 cm. Probable corpus luteum on the right is seen, 2.0 x 1.6 x 2.6 cm. Left ovary measures 2.1 x 1.2 x 2.7 cm with follicles noted. Arterial inflow and venous outflow is seen on the left. IMPRESSION: 1. Intrauterine gestational sac is noted with 3 living fetuses which appear to be contained with a single chorion with a single yolk sac present. There is a small cystic structure adjacent to baby B which may reflect a second yolk sac. These findings suggest monoamnionic monochorionic or alternatively a diamniotic monochorionic triplet gestation. Baby A is considerably larger than baby B and C. Close follow-up with high risk obstetric monitoring and follow-up pelvic ultrasound is needed . 2. Right corpus luteum, 2.6 cm. No evidence of ovarian torsion. The above report was generated using voice recognition software. It may contain grammatical, syntax or spelling errors. Electronically signed by: Balaji Moore M.D. 06/24/2017 7:13 AM Dictated Date/Time: 06/24/2017 6:52 AM
[2017-06-24 07:33] VITALS: BP 115/74; PULSE 79; O2SAT 98
== END 2017-06-24 07:42 | disposition home or self-care (01) ==
LOC: C.EDB 04:00
DX: O46.91 Antepartum hemorrhage, unspecified, first trimester (principal); Z3A.09 9 weeks gestation of pregnancy; K58.9 Irritable bowel syndrome, unspecified; Z79.899 Other long term (current) drug therapy; Z84.1 Family history of disorders of kidney and ureter

== ENCOUNTER → 2017-10-14 | Outpatient (CLI) | payer BC, OTHER ==
[~2017-10-14] MED LIST changes: -FLUT0.15 NAE; -OXYC1TAB3 PO
[2017-10-14 15:13] LABS: THYROID STIMULATING HORMONE 1.17 uIu/ml (0.300-4.500)
== END | disposition home or self-care (01) ==
LOC: C.LAB1850 13:10
PROVIDERS: ATTEND Internal Medicine Endocrinology, Diabetes & Metabolism
DX: E03.9 Hypothyroidism, unspecified (principal)

== ENCOUNTER 2018-01-29 15:28 | Inpatient (IN) | payer BC, OTHER ==
[~2018-01-29] VITALS: Ht 162.6 cm; Wt 89.1 kg
[2018-01-29] MEDS ORDERED: LACTATED RINGER'S 1000ML 1,000 ML IV PRN (15:49)
[2018-01-29] MEDS ORDERED: DINOPROSTONE 10 MG INSERT PV ONE (16:00)
[2018-01-29 16:18] LABS: BASO % 0.2 %; BASO ABS # 0.02 K/uL (0-0.2); EOS % 2.7 %; EOS ABS # 0.25 K/uL (0-0.5); HEMATOCRIT 39.9 % (37-47); HEMOGLOBIN 13.1 g/dL (12.0-16.0); IG# 0.03 K/uL (0.00-0.02); LYMPH % 17.3 %; LYMPH ABS # 1.59 K/uL (1.2-3.4); MEAN CELL VOLUME 84.5 fL (80-100); MEAN CORPUSCULAR HEMOGLOBIN 27.8 pg (25-34); MEAN PLATELET VOLUME 12.9 fL (7.4-10.4); MONO % 7.2 %; MONO ABS # 0.66 K/uL (0.11-0.59); NEUT % 72.3 %; NEUT ABS # 6.64 K/uL (1.4-6.5); PLATELET COUNT 165 K/uL (130-400); RED CELL DISTRIBUTION WIDTH CV 16.8 % (11.5-14.5); RED CELL DISTRIBUTION WIDTH SD 51.7 fL (36.4-46.3); WHITE BLOOD COUNT 9.19 K/uL (4.8-10.8)
[2018-01-29 16:23] LABS: MEAN CORPUSCULAR HGB CONC 32.8 g/dl (32-36)
[2018-01-29 16:28] LABS: INR 0.9 (0.9-1.1); PTT PATIENT 26.1 SECONDS (21.0-31.0)
[2018-01-29] MEDS: LACTATED RINGER'S 1000ML 1,000 ML IV SCH ×2 (16:55→21:46)
[2018-01-29 17:06] LABS: ALT/SGPT 26 U/L (12-78); AST/SGOT 34 U/L (15-37); BLOOD UREA NITROGEN 9 mg/dl (7-18); CALCIUM 9.2 mg/dl (8.5-10.1); CARBON DIOXIDE 21 mmol/L (21-32); CREATININE 0.83 mg/dl (0.60-1.20); GLUCOSE 85 mg/dl (70-99); SODIUM 136 mmol/L (136-145); URIC ACID 5.1 mg/dl (2.6-7.2)
[2018-01-29] MEDS ORDERED: MAGN400T6 PO (17:32)
[2018-01-29 17:39] VITALS: Ht 162.6 cm; Wt 89.1 kg
[2018-01-29] MEDS ORDERED: NURSING VERBAL MED ORDER ONE ×2 (20:30→21:45)
[2018-01-29] MEDS: MONTELUKAST SOD 10 MG TAB PO SCH (21:31)
[2018-01-29] MEDS: SERTRALINE HCL 100 MG TAB PO SCH (21:31)
[2018-01-29] MEDS: BuPROPion XL 300 MG TABCR PO SCH (21:31)
[2018-01-29] MEDS ORDERED: MAGNESIUM OXIDE 400 MG TAB PO ONE (22:00)
[2018-01-29] MEDS ORDERED: ACETAMINOPHEN 325 MG TAB PO STA (23:39)
[2018-01-30] MEDS ORDERED: NURSING VERBAL MED ORDER ONE ×2 (00:45→11:45)
[2018-01-30] MEDS: LEVOTHYROXINE 75 MCG TAB PO SCH (07:16)
[2018-01-30] MEDS: CETIRIZINE HCL 10 MG TAB PO SCH (07:18)
[2018-01-30] MEDS ORDERED: MAGNESIUM OXIDE 400 MG TAB PO SCH (08:00)
[2018-01-30] MEDS ORDERED: DINOPROSTONE 10 MG INSERT PV ONE ×2 (09:00→11:45)
--- NOTE | 2018-01-30 09:12 | Progress Note ---
Progress Note Date of Service Jan 30, 2018. Progress Note Cervidil 10 mg placed vaginally for ripening. Cervix remains finger tip/50/-3/ vertex/soft. [facility] Cat 1.
--- NOTE | 2018-01-30 13:08 | Progress Note ---
Progress Note Date of Service Jan 30, 2018. Progress Note Cevidil fell out while going to the bathroom. I replaced this with another Cervidil 10 mg placed vaginally. Cervix unchanged at fingertip/50/-3. [facility] Cat 1.
[2018-01-30] MEDS: MONTELUKAST SOD 10 MG TAB PO SCH (21:12)
[2018-01-30] MEDS: BuPROPion XL 300 MG TABCR PO SCH (21:12)
[2018-01-30] MEDS: SERTRALINE HCL 100 MG TAB PO SCH (22:14)
[2018-01-30] MEDS: MAGNESIUM OXIDE 400 MG TAB PO SCH (22:15)
[2018-01-31] MEDS ORDERED: ACETAMINOPHEN 325 MG TAB PO PRN (00:15)
[2018-01-31] MEDS ORDERED: MISOPROSTOLTAB 50 MCG TAB PO SCH (02:00)
[2018-01-31] MEDS: BUTORPHANOL TARTRATE 1 MG/ML VIAL IV PRN ×2 (02:27→04:32)
[2018-01-31] MEDS ORDERED: ONDANSETRON INJ 2 MG/ML 2 ML VIAL IV STA (04:17)
[2018-01-31] MEDS ORDERED: EpHEDrine SULFATE INJ 50 MG/ML AMP ONE (04:55)
[2018-01-31] MEDS ORDERED: BUPIVACAINE 0.25% 30 ML VIAL ONE (04:55)
[2018-01-31] MEDS ORDERED: FENTANYL 2MCG/ML ROPIV 1.25MG/ML 100ML BAG EPI ONE ×4 (04:56→20:53)
[2018-01-31] MEDS ORDERED: FENTANYL CITRATE INJ 50 MCG/1 ML 2 ML VIAL ONE ×2 (04:56→23:39)
[2018-01-31] MEDS ORDERED: LACTATED RINGER'S 1000ML 500 ML IV PRN ×3 (06:16→21:00)
[2018-01-31] MEDS ORDERED: NALOXONE HCL INJ 1 MG in SODIUM CHLORIDE 0.9% 1000ML 1,000 ML IV PRN ×2 (06:16→21:00)
[2018-01-31] MEDS ORDERED: EpHEDrine SULFATE INJ 50 MG/ML AMP IV PRN ×2 (06:30→21:00)
[2018-01-31] MEDS ORDERED: DiphenhydrAMINE HCL 50 MG/ML VIAL IV PRN ×2 (06:30→21:00)
[2018-01-31] MEDS ORDERED: NALOXONE HCL INJ 0.4 MG/1 ML VIAL/CARP IV PRN (06:30)
[2018-01-31] MEDS ORDERED: NALBUPHINE HCL INJ 10 MG/ML AMP IV PRN ×2 (06:30→21:00)
[2018-01-31] MEDS ORDERED: FENTANYL 2MCG/ML ROPIV 1.25MG/ML 100ML BAG EPI PRN ×2 (06:30→21:00)
[2018-01-31] MEDS: LEVOTHYROXINE 75 MCG TAB PO SCH (07:35)
[2018-01-31] MEDS: CETIRIZINE HCL 10 MG TAB PO SCH (08:00)
[2018-01-31] MEDS: LACTATED RINGER'S 1000ML 1,000 ML IV SCH (08:17)
[2018-01-31] MEDS ORDERED: ONDANSETRON INJ 2 MG/ML 2 ML VIAL ONE (12:18)
[2018-01-31] MEDS ORDERED: ONDANSETRON 4 MG TAB PO PRN (12:30)
[2018-01-31] MEDS ORDERED: OXYTOCIN 30 UNITS/500ML NSS IV PRN (13:45)
[2018-01-31] MEDS: ALBUTEROL HFA 8 GM INHALER INH PRN ×2 (17:33→22:47)
[2018-01-31] MEDS ORDERED: NALOXONE HCL 0.4 MG/1 ML VIAL/CARP IV PRN (21:00)
[2018-01-31] MEDS: BuPROPion XL 300 MG TABCR PO SCH (21:19)
[2018-01-31] MEDS: MONTELUKAST SOD 10 MG TAB PO SCH (21:19)
[2018-01-31] MEDS: MAGNESIUM OXIDE 400 MG TAB PO SCH (22:00)
[2018-01-31] MEDS: SERTRALINE HCL 100 MG TAB PO SCH (22:00)
[2018-01-31] MEDS ORDERED: LACTATED RINGER'S 1000ML 1,000 ML IV SCH ×2 (23:01→23:15)
[2018-01-31] MEDS ORDERED: CEFAZOLIN IV 2,000 MG in SYRINGE 0 ML IV STA (23:11)
[2018-01-31] MEDS ORDERED: CITRIC ACID/SODIUM CITRATE 15 ML UDC PO ONE (23:15)
[2018-01-31] MEDS ORDERED: CEFAZOLIN IV 2,000 MG in DEXTROSE 5% 50ML 50 ML IV SCH (23:15)
[2018-01-31] MEDS ORDERED: LIDOCAINE/EPINEPHRINE 2% 1:200,000 20 ML SDV ONE (23:25)
[2018-01-31] MEDS ORDERED: MoRPHine SULFATE PF 1 MG/ML 10 ML AMP/VIAL ONE (23:39)
[2018-01-31] MEDS ORDERED: OXYTOCIN INJ 10 UNITS/ML VIAL ONE (23:39)
[2018-02-01] VITALS (21 sets, daily range): BP systolic 108–134; BP diastolic 73–82; PULSE 88–120; TEMP 36.4–36.8; O2SAT 18–97
[2018-02-01] MEDS ORDERED: MISOPROSTOL 200 MCG TAB ONE (00:03)
[2018-02-01] MEDS ORDERED: METHYLERGONOVINE MALEATE 0.2 MG/ML AMP ONE (00:08)
[2018-02-01] MEDS ORDERED: KETOROLAC TROMETHAMINE 30 MG/ML VIAL ONE (00:08)
[2018-02-01] MEDS ORDERED: ONDANSETRON INJ 2 MG/ML 2 ML VIAL ONE (00:35)
[2018-02-01] MEDS ORDERED: MAGNESIUM HYDROXIDE SUSP 30 ML UDC PO PRN (00:45)
[2018-02-01] MEDS ORDERED: SUPERCREAM 0.870 % 15GM JAR EXT PRN (00:45)
[2018-02-01] MEDS ORDERED: MISOPROSTOL 200 MCG TAB PV ONE (00:45)
[2018-02-01] MEDS ORDERED: LANOLIN OINT EXT PRN (00:45)
[2018-02-01] MEDS ORDERED: SENNA 8.6 MG TAB PO PRN (00:45)
[2018-02-01] MEDS ORDERED: BENZOCAINE 20% AER SPR 82.5 GM CAN EXT PRN (00:45)
[2018-02-01] MEDS ORDERED: HYDROCORTISONE ACETATE 25 MG SUPP PR PRN (00:45)
[2018-02-01] MEDS ORDERED: LACTATED RINGER'S 1000ML 1,000 ML IV SCH (00:45)
[2018-02-01] MEDS ORDERED: PROMETHAZINE HCL INJ 25 MG in SODIUM CHLORIDE 0.9% 50ML 50 ML IV PRN (00:45)
--- NOTE | 2018-02-01 01:03 | [facility] Post Operative Brief Note ---
Immediate Operative Summary Operative Date Feb 01, 2018. Pre-Operative Diagnosis IUP; Failure to descend Prolonged Rapture of membranes maternal exhaustion meconium Post-Operative Diagnosis Same Procedure(s) Performed Primary caesarean section Surgeon Dr. Moreira Linderman Operator Surgeon(s) Dr. Price Estimated Blood Loss 700cc Findings See Below dictated Fluids (cc crystalloids) 1500 Specimens Placenta-exam Cord blood Cord blood gases Drains None Anesthesia Type L&D Only EPID Exist Complication(s) none Disposition Accompanied Pt To Recover: yes ( ) Disposition: L&D
[2018-02-01] MEDS: OXYTOCIN INJ 20 UNITS in LACTATED RINGER'S 1000ML 1,000 ML IV SCH ×2 (01:43→10:37)
--- NOTE | 2018-02-01 01:56 | Anesthesiology Progress Note ---
Anesthesia Post Op Note Date & Time Feb 01, 2018 at 01:56 Vital Signs Pain Intensity: 0.0 Notes Mental Status: alert / awake / arousable, participated in evaluation Pt Amnestic to Procedure: Yes Nausea / Vomiting: adequately controlled Pain: adequately controlled Airway Patency, RR, SpO2: stable & adequate BP & HR: stable & adequate Hydration State: stable & adequate Neuraxial Anesthesia: was administered, sensory block is resolving Anesthetic Complications: no major complications apparent
--- NOTE | 2018-02-01 01:56 | Anesthesia Procedure Note ---
Anesthesia Epidural Removal Nt Date & Time Feb 01, 2018 at 01:56 Vital Signs Pain Intensity: 0.0 Notes Mental Status: alert / awake / arousable, participated in evaluation Nausea / Vomiting: adequately controlled Pain: adequately controlled Airway Patency, RR, SpO2: stable & adequate BP & HR: stable & adequate Hydration State: stable & adequate Neuraxial Anesthesia: was administered Anesthetic Complications: no major complications apparent, pt satisfied with anesthetic care Epidural: removed without complications, with tip intact
[2018-02-01] MEDS ORDERED: CONTINUE MEDICATION ONE (02:00)
[2018-02-01] MEDS ORDERED: MoRPHine SULFATE 2 MG/ML CARP IV PRN (02:00)
[2018-02-01] MEDS ORDERED: MEPERIDINE HCL 25 MG/ML CARP IV PRN (02:00)
[2018-02-01] MEDS ORDERED: MoRPHine SULFATE PF 1 MG/ML 10 ML AMP/VIAL EPI PRN (02:00)
[2018-02-01] MEDS ORDERED: DC INTRASPINAL MORPHINE PRN (02:00)
[2018-02-01] MEDS ORDERED: DiphenhydrAMINE HCL 50 MG/ML VIAL IV PRN ×2 (02:00→17:00)
[2018-02-01] MEDS ORDERED: NO NARCOTICS OR SEDATIVES SCH (02:00)
--- NOTE | 2018-02-01 02:49 | OPERATIVE REPORT ---
DATE OF OPERATION: 02/01/2018 INDICATION FOR SURGERY: This is a 32-year-old who was admitted for elevated blood pressures. She was admitted for induction of labor. She received Cervidil and Pitocin. She was fully dilated by 11:00 a.m. on 01/31/2018. The station was -1 at that time. Decision was, therefore, made for her to labor down. She began pushing at 12:40 on 01/31/2018 for about an hour. After an hour of pushing, the patient experienced asthma attack. She was given inhaler. She stopped pushing for a while and rested. She began a second series of pushing at around 1600 hours and pushed for an hour again. During this time, she continued to receive Pitocin. At the end of an hour of pushing, she was very exhausted and rested a little bit more. She had third series of pushing, began around 2000 hours. The patient pushed for another hour. Once again, the station did not change. During this time, heart rate continued to be category 1. There was, however, meconium. There was no fever reported. After 3 hours of pushing and considering the fact that the patient had been fully dilated at 1100 hours this morning, discussion was had with the patient. Decision at this point was failure to descend. I discussed section with the patient and she agreed to procedure. Decision was, therefore, made to perform section. PREOPERATIVE DIAGNOSES: 1. at term. 2. Induction of labor for postdates and for elevated blood pressures. 3. Failure to descend. 4. Prolonged rupture of membranes. 5. Maternal exhaustion. 6. Meconium. POSTOPERATIVE DIAGNOSES: Same. PROCEDURE: Primary section. SURGEON: Dr. Moreira. REPLANTING MACHINE CREWMAN: Dr. Price. ESTIMATED BLOOD LOSS: 700 mL FINDINGS: Live female . Fetus was occiput posterior presentation. 's head was deep in the pelvis. The patient has been pushing for over 3 hours and had been fully dilated since 1100 hours. The uterus, adnexa and pelvis otherwise were unremarkable. 's Apgars 7 and 8. INTRAVENOUS FLUIDS: 1500. URINE OUTPUT: 50 mL SPECIMEN: Cord gas, cord blood and placenta. DRAINS: None. ANESTHESIA: Epidural. COMPLICATIONS: None. DISPOSITION: Stable to recovery room. PROCEDURE IN DETAIL: The patient was taken to the operating room where she was prepped and draped in normal sterile fashion. Timeout was called. A Pfannenstiel incision was made and carried down to the fascia. Fascia was incised in the midline and extended laterally on both sides. The fascia was sharply dissected off the rectus abdominus muscle. The rectus abdominus muscle was identified and entered sharply in the mid portion. Peritoneum was identified, entered sharply. Once inside the abdomen, an Matheus retractor was used for retraction. The uterus was identified and vesicouterine peritoneum was sharply dissected off the lower segment of the uterus. Transverse incision was made on the uterus and extended laterally on both sides using bandage scissors. 's head was delivered. As stated above, the infant's head was deep in the pelvis, and once the infant's head was carefully delivered, cord was clamped and cut and the turned over to the pediatric team. The 's information is in the pediatric record. Cord blood and cord gas were obtained. Placenta was manually removed. Uterus was exteriorized and cleared of all clots and debris. Uterus was closed in 2 layers using a Vicryl stitch. Copious amount of irrigation was used to irrigate the abdomen. Uterus was returned to the abdominal cavity and the vesicouterine peritoneum closed in a running fashion. There was good hemostasis at this point. The Matheus retractor was removed. Peritoneum was closed in a running fashion. [id number] was used to reapproximate the muscles. The fascia was closed in a running fashion using Vicryl. Subcu space was irrigated and closed with plain suture. Skin was closed with humberto. All instruments were removed from the abdomen and accounted for x2 including sponges, needles and retractors. The patient and baby are doing well in recovery. I attest to the content of the Intraoperative Record and any orders documented therein. Any exception s are noted below.
[2018-02-01] MEDS: KETOROLAC TROMETHAMINE 30 MG/ML VIAL IV. PRN ×2 (04:33→10:38)
[2018-02-01] MEDS: LEVOTHYROXINE 75 MCG TAB PO SCH (07:24)
[2018-02-01] MEDS: CETIRIZINE HCL 10 MG TAB PO SCH (07:27)
[2018-02-01] MEDS: SIMETHICONE 80 MG CHEW PO SCH ×4 (07:29→19:37)
[2018-02-01] MEDS: FERROUS SULFATE 325 MG TAB PO SCH (07:31)
[2018-02-01] MEDS: DOCUSATE SODIUM 100 MG CAP PO SCH ×2 (07:31→19:37)
[2018-02-01] MEDS: PRENATAL VITAMIN TAB PO SCH (07:32)
--- NOTE | 2018-02-01 10:13 | Surgery Progress Note ---
Surgery Progress Note Date of Service Feb 01, 2018. Subjective Post OP Day: 1 + feeling well, + ambulating, + bowel movement, + pain controlled, + diet ( Tolerating Po food and Meds), No complaints, No chest pain, No SOB, No flatus, No using DOCUMENT CONTROL SUPERVISOR, No nausea, No vomiting Objective Vital Signs: Date Time Temp Pulse Resp B/P (MAP) Pulse Ox O2 Delivery O2 Flow Rate FiO2 02/01/18 06:20 18 92 02/01/18 06:20 92 Nasal Cannula 2.0 02/01/18 06:19 88 Nasal Cannula 1.5 02/01/18 06:19 16 88 02/01/18 05:38 95 Nasal Cannula 1.5 02/01/18 05:38 20 95 02/01/18 05:35 88 Room Air 02/01/18 05:35 18 88 02/01/18 04:40 18 92 02/01/18 03:40 20 94 02/01/18 03:10 36.4 120 20 126/82 (97) 95 Room Air 02/01/18 03:10 95 Room Air 02/01/18 03:10 95 Room Air 02/01/18 03:10 20 95 General Appearance: WD/WN, no apparent distress Head: normocephalic, atraumatic Neck: supple, no adenopathy, thyroid normal, no JVD, no carotid bruits, trachea midline Respiratory/Chest: chest non-tender, lungs clear, normal breath sounds, no respiratory distress, no accessory muscle use Cardiovascular: regular rate, rhythm, no edema, no gallop, no JVD, no murmur Abdomen: normal bowel sounds, non tender, non distended, soft, no organomegaly , no pulsatile mass Incision(s): clean, dry, intact, no erythema, no drainage Extremities: normal range of motion, non-tender, normal inspection, no pedal edema, no calf tenderness, normal capillary refill, pelvis stable Assessment & Plan c/sed Daty #1 pt doing well continue day #1 care
[2018-02-01] MEDS ORDERED: OXYCODONE/ACETAMINOPHEN 5-325 TAB PO PRN (17:00)
[2018-02-01] MEDS ORDERED: ONDANSETRON INJ 2 MG/ML 2 ML VIAL IV PRN (17:00)
[2018-02-01] MEDS: IBUPROFEN 600 MG TAB PO PRN ×2 (17:11→23:55)
[2018-02-01] MEDS: OXYCODONE/ACETAMINOPHEN 5-325 TAB PO PRN ×2 (17:11→23:56)
[2018-02-01] MEDS: BuPROPion XL 300 MG TABCR PO SCH (21:34)
[2018-02-01] MEDS: MONTELUKAST SOD 10 MG TAB PO SCH (21:34)
[2018-02-01] MEDS: SERTRALINE HCL 100 MG TAB PO SCH (21:34)
[2018-02-01] MEDS: MAGNESIUM OXIDE 400 MG TAB PO SCH (21:34)
[2018-02-02 06:28] LABS: BASO % 0.1 %; BASO ABS # 0.02 K/uL (0-0.2); EOS % 1.7 %; EOS ABS # 0.28 K/uL (0-0.5); HEMATOCRIT 34.8 % (37-47); HEMOGLOBIN 11.1 g/dL (12.0-16.0); IG# 0.05 K/uL (0.00-0.02); LYMPH % 6.8 %; LYMPH ABS # 1.13 K/uL (1.2-3.4); MEAN CELL VOLUME 85.3 fL (80-100); MEAN CORPUSCULAR HEMOGLOBIN 27.2 pg (25-34); MEAN CORPUSCULAR HGB CONC 31.9 g/dl (32-36); MEAN PLATELET VOLUME 11.7 fL (7.4-10.4); MONO % 4.8 %; MONO ABS # 0.79 K/uL (0.11-0.59); NEUT % 86.3 %; NEUT ABS # 14.32 K/uL (1.4-6.5); PLATELET COUNT 144 K/uL (130-400); RED CELL DISTRIBUTION WIDTH CV 17.7 % (11.5-14.5); RED CELL DISTRIBUTION WIDTH SD 54.8 fL (36.4-46.3); WHITE BLOOD COUNT 16.59 K/uL (4.8-10.8)
[2018-02-02] MEDS: LEVOTHYROXINE 75 MCG TAB PO SCH (07:21)
[2018-02-02 07:24] VITALS: BP 142/84; PULSE 111; TEMP 36.8; O2SAT 98
[2018-02-02] MEDS: DOCUSATE SODIUM 100 MG CAP PO SCH ×2 (08:21→20:20)
[2018-02-02] MEDS: FERROUS SULFATE 325 MG TAB PO SCH (08:21)
[2018-02-02] MEDS: IBUPROFEN 600 MG TAB PO PRN ×4 (08:21→22:22)
[2018-02-02] MEDS: PRENATAL VITAMIN TAB PO SCH (08:21)
[2018-02-02] MEDS: CETIRIZINE HCL 10 MG TAB PO SCH (08:21)
[2018-02-02] MEDS: SIMETHICONE 80 MG CHEW PO SCH ×4 (08:21→20:21)
[2018-02-02] MEDS: OXYCODONE/ACETAMINOPHEN 5-325 TAB PO PRN ×4 (08:22→22:22)
--- NOTE | 2018-02-02 13:37 | Surgery Progress Note ---
Surgery Progress Note Date of Service Feb 02, 2018. Subjective Post OP Day: 2 + feeling well, + ambulating Objective Vital Signs: Date Time Temp Pulse Resp B/P (MAP) Pulse Ox O2 Delivery O2 Flow Rate FiO2 02/02/18 07:24 36.8 111 20 142/84 (103) 98 Room Air 02/02/18 07:24 98 Room Air 02/01/18 23:25 36.8 100 18 134/82 (99) 95 Room Air 02/01/18 23:25 95 Room Air 02/01/18 19:40 36.6 89 18 121/81 (94) 96 Room Air 02/01/18 16:50 18 95 02/01/18 16:50 Room Air 02/01/18 16:50 36.7 88 18 133/81 (98) 95 Room Air 02/01/18 16:00 20 95 02/01/18 15:00 18 95 02/01/18 14:00 18 92 Physical Exam: urine output General Appearance: no apparent distress Abdomen: non tender, non distended, soft Incision(s): clean, dry, intact Extremities: non-tender, normal inspection, no pedal edema, no calf tenderness Laboratory Results: Results Past 24 Hours Test 02/02/18 06:09 Range/Units White Blood Count 16.59 4.8-10.8 K/uL Red Blood Count 4.08 4.2-5.4 M/uL Hemoglobin 11.1 12.0-16.0 g/dL Hematocrit 34.8 37-47 % Mean Corpuscular Volume 85.3 80-100 fL Mean Corpuscular Hemoglobin 27.2 25-34 pg Mean Corpuscular Hemoglobin Concent 31.9 32-36 g/dl Platelet Count 144 130-400 K/uL Mean Platelet Volume 11.7 7.4-10.4 fL Neutrophils (%) (Auto) 86.3 % Lymphocytes (%) (Auto) 6.8 % Monocytes (%) (Auto) 4.8 % Eosinophils (%) (Auto) 1.7 % Basophils (%) (Auto) 0.1 % Neutrophils # (Auto) 14.32 1.4-6.5 K/uL Lymphocytes # (Auto) 1.13 1.2-3.4 K/uL Monocytes # (Auto) 0.79 0.11-0.59 K/uL Eosinophils # (Auto) 0.28 0-0.5 K/uL Basophils # (Auto) 0.02 0-0.2 K/uL RDW Standard Deviation 54.8 36.4-46.3 fL RDW Coefficient of Variation 17.7 11.5-14.5 % Immature Granulocyte % (Auto) 0.3 % Immature Granulocyte # (Auto) 0.05 0.00-0.02 K/uL Assessment & Plan regular diet POD#2 advance care
[2018-02-02 15:35] VITALS: BP 128/80; PULSE 96; TEMP 36.9; O2SAT 97
[2018-02-02] MEDS ORDERED: BISACODYL 5 MG TABEC ONE (20:15)
[2018-02-02] MEDS: MONTELUKAST SOD 10 MG TAB PO SCH (20:21)
[2018-02-02] MEDS: BuPROPion XL 300 MG TABCR PO SCH (20:21)
[2018-02-02] MEDS: MAGNESIUM OXIDE 400 MG TAB PO SCH (20:22)
[2018-02-02] MEDS: SERTRALINE HCL 100 MG TAB PO SCH (20:22)
[2018-02-02] MEDS ORDERED: BISACODYL 5 MG TABEC PO ONE (22:00)
[2018-02-03 00:15] VITALS: BP 147/92; PULSE 111; TEMP 36.6; O2SAT 100
[2018-02-03] MEDS ORDERED: BISACODYL 10 MG SUPP PR PRN (00:45)
[2018-02-03 02:52] VITALS: BP 142/85; PULSE 103
[2018-02-03] MEDS: IBUPROFEN 600 MG TAB PO PRN ×2 (05:39→14:10)
[2018-02-03] MEDS: OXYCODONE/ACETAMINOPHEN 5-325 TAB PO PRN ×2 (05:40→14:09)
--- NOTE | 2018-02-03 07:20 | OB/GYN Progress Note ---
STOCKKEEPER Progress Note Date of Service Feb 03, 2018. Subjective conversation w/ patient, physical exam Ambulation: ambulating normally Voiding: no voiding problems Passing Gas: Yes Diet Tolerance: Regular Diet Lochia: Small Feeding Type: Breast Feeding Pain: 02/03 Notes: Doing well. Tolerating regular diet. Pain well controlled. Ambulating without difficulty. Lochia minimal. Objective Vital Signs Date Time Temp Pulse Resp B/P (MAP) Pulse Ox O2 Delivery O2 Flow Rate FiO2 02/03/18 02:52 103 142/85 (104) 02/03/18 00:15 100 Room Air 02/03/18 00:15 36.6 111 20 147/92 (110) 100 Room Air 02/02/18 15:35 36.9 96 18 128/80 (96) 97 Room Air 02/02/18 15:35 97 Room Air 02/02/18 07:24 36.8 111 20 142/84 (103) 98 Room Air 02/02/18 07:24 98 Room Air Physical Exam General Appearance: WELL-APPEARING Respiratory/Chest: chest non-tender, lungs clear Cardiovascular: regular rate, rhythm Abdomen: normal bowel sounds, soft Fundus: Firm Incision Description: Clean, Dry & Intact Extremities: normal range of motion, non-tender, no calf tenderness Laboratory Results Last 24 Hours Test 02/03/18 06:00 Assessment and Plan Post-Op Day Number: 2 Continue Routine Care: -Continue routine postop care -Incision c/d/i -Anticipate D/C home tomorrow AM.
[2018-02-03] MEDS: LEVOTHYROXINE 75 MCG TAB PO SCH (07:21)
[2018-02-03] MEDS: DOCUSATE SODIUM 100 MG CAP PO SCH (07:21)
[2018-02-03] MEDS: FERROUS SULFATE 325 MG TAB PO SCH (07:22)
[2018-02-03] MEDS: PRENATAL VITAMIN TAB PO SCH (07:22)
[2018-02-03] MEDS: CETIRIZINE HCL 10 MG TAB PO SCH (07:23)
[2018-02-03] MEDS ORDERED: OXYC-57 PO (07:24)
[2018-02-03] MEDS ORDERED: MTR600X PO (07:24)
--- NOTE | 2018-02-03 07:29 | Discharge Instructions ---
Discharge Instructions Date of Service Feb 03, 2018. Admission Reason for Admission: High Blood Pressure Discharge Discharge Diagnosis / Problem: Term , elevated BP's, Primary C/S Discharge Goals Goal(s): Routine recovery after Medications Continue Dispensed Medications: supercream, dermaplast, tucks, inhaler Activity Recommendations Activity Limitations: per Instructions/Follow-up section . Instructions / Follow-Up Instructions / Follow-Up ACTIVITY RECOMMENDATIONS: * Gradual return to full activity over the next 2-3 weeks. * No lifting - nothing heavier than baby over the next 2-3 weeks. * Do not engage in vigorous exercise, sexual activity or sports until cleared by your physician. * Do not drive or operate any motorized equipment until cleared by your physician. * You may shower/bathe daily. BREAST CARE: If you are not breast feeding: * Wear a supportive bra 24 hours a day for one to two weeks. * Avoid stimulating your breasts and nipples as much as possible during the first few weeks after delivery. * When taking a shower, have the warm water hit your back, not breasts. * When your breasts feel full, apply ice packs. Usually three to four times a day helps ease the discomfort. * Take a mild pain medication (Tylenol/Motrin) when you are uncomfortable. If breast feeding: * Use breast milk to lubricate nipples. Lansinoh cream may be used for sore nipples. You do not need to remove cream prior to breast feeding. If using a different brand of cream, check the label for directions regarding removal of cream prior to nursing. * Wear a supportive bra. * If having problems with breasts or breast feeding, call a oracle consultant or your health care provider. OVER THE COUNTER MEDICATION: * For discomfort or pain, you may use Acetaminophen (Tylenol), Ibuprofen (Advil ), or Naproxen (Aleve) following the package directions. * For constipation you may use Colace following the package directions. SPECIAL CARE INSTRUCTIONS: When you are discharged from the hospital, it is important for you to follow the instructions listed below: * During the first week at home, you should be able to care for yourself and your baby. In addition, the usual light household activities are encouraged. * Limit your activities to the way you feel. Do not try to clean the house or move furniture. Be sensible. * If you actively engage in sports and have done so up until the time of your delivery, you may resume these activities as soon as you feel able. This may take up to one month or even longer. Use good judgment. * Continue to take your vitamins for at least six weeks after the of your baby. * Your diet need not be limited unless you were on a special diet before your delivery. Breast-feeding mothers need around 2500 calories per day and at least 64-80 ounces of fluid per day (8 to 10 glasses). * You should eat foods from the four major food groups. Crash diets or fad diets are to be avoided. Eating lean meats, fresh fruits and vegetables, low-fat dairy products, high fiber foods and a regular exercise program, will help you get back to your pre- weight without putting your health at risk. * Constipation is sometimes a problem after delivery. Take a mild laxative as needed. If breast feeding, Milk of Magnesia is acceptable to use. You may use a suppository or Fleets enema if no episiotomy. * A daily shower or tub bath is suggested. Be sure to thoroughly and gently dry the perineum. * A bloody vaginal discharge will usually continue until around four weeks post . A small amount of bleeding may continue for as long as six weeks. Vaginal discharge changes from the bright red bleeding after delivery to pink then brownish and finally yellowish-pink before becoming white and disappearing. * Bleeding may increase with activity. Your first period may come in 4-8 weeks. If you are breast feeding, your period may be delayed even longer. * [place] (sex) can begin whenever both you and your partner feel comfortable and do not have any form of genital infection. It is recommended that you wait at least six weeks for internal and external healing to occur. If you have questions, please talk to your health care practitioner. A condom should be used to prevent infection and . * Foreplay, gentle intercourse and lubrication is very important the first several times to prevent pain. A water-based lubricant such as K-Y jelly or Astroglide may be used. * Tampons and/or Douching should be avoided until after six weeks check-up. * If you have RH negative blood and your baby is RH positive, you will receive RHOGAM by injection prior to discharge. The nurse will give you a card to keep with you that has the date and place that you received RHOGAM after delivery. * During your care, you had a Rubella screen done to check for the presence of rubella antibodies in your blood. If your test was negative, you will receive a Rubella vaccine prior to discharge. This vaccine may cause a fever, soreness at the injection site and flu-like symptoms. If these symptoms persist, notify your health care practitioner. is not advised for three months after a Rubella vaccine. * Verbalizes understanding of car seat law as reviewed with patient nursing. * Car Seat hand-out given and reviewed with patient by nursing. * Shaken baby information reviewed with patient by nursing. Call you doctor if: * Heavy bleeding (saturating several pads an hour) or passing clots the size of your fist. * A fever >101 degrees F (38.3 degrees C) on two occasions four hours apart and /or chills. * Unusual pain in the pelvic or vaginal areas. Pain should improve each day . * Call the doctor for any increased redness, drainage or swelling around the incision and any pain unrelieved by prescribed pain medication. * Any signs or symptoms of phlebitis (possible blood clots forming in the veins ): leg pain, warm, red or swollen area on leg. * "Baby Blues" lasting longer than two weeks. If you have any questions or concerns, call your health care practitioner at . FOLLOW-UP VISIT: * Incision check (staple removal) in 1 week. Please call doctor's office at to set up appointment. * Please call the office at to schedule a 6 week examination. It is important you keep this appointment. * It is important for you to make arrangements for either yearly or twice yearly check-ups thereafter. Current Hospital Diet Patient's current hospital diet: Regular OB Diet Discharge Diet Recommended Diet: Regular OB Diet Procedures Procedures Performed: Primary caesarean section Pending Studies Studies pending at discharge: no Medical Emergencies . Who to Call and When: Medical Emergencies: If at any time you feel your situation is an emergency, please call 911 immediately. . Non-Emergent Contact Non-Emergency issues call your: Primary Care Provider, Gear Design Engineer . . "Provider Documentation" section prepared by Indio Ramos. . [place] Drug Monitoring Program Search Results: patient reviewed within database, no issues identified
[2018-02-03] MEDS: SIMETHICONE 80 MG CHEW PO SCH ×2 (08:00→11:38)
[2018-02-03 08:23] LABS: HEMATOCRIT 32.1 % (37-47); HEMOGLOBIN 10.5 g/dL (12.0-16.0)
[2018-02-03 08:45] VITALS: BP 137/86; PULSE 73; TEMP 36.7; O2SAT 96
[2018-02-03 16:15] VITALS: BP 137/76; PULSE 106; TEMP 37.2
[2018-02-03 17:24] VITALS: BP_DIAS 76; PULSE 106; TEMP 37.2
== END 2018-02-03 18:30 | disposition home or self-care (01) | DRG 766 ==
LOC: C.OPB 15:28 → C.LD 15:29 → C.OPB 15:51 → C.LD 15:51 → C.OBG 02-01 02:52
PROVIDERS: ADMIT Obstetrics & Gynecology; ATTEND Obstetrics & Gynecology
PROC: 3E0P7GC Introduction of Other Therapeutic Substance into Female Reproductive, Via Natural or Artificial Opening (ICD-10-PCS; principal; 2018-01-30)
PROC: 10907ZC Drainage of Amniotic Fluid, Therapeutic from Products of Conception, Via Natural or Artificial Opening (ICD-10-PCS; 2018-01-31)
PROC: 10D00Z1 Extraction of Products of Conception, Low, Open Approach (ICD-10-PCS; 2018-02-01)
DX: O63.1 Prolonged second stage (of labor) (principal); O75.81 Maternal exhaustion complicating labor and delivery; O77.0 Labor and delivery complicated by meconium in amniotic fluid; O48.0 Post-term pregnancy; Z3A.40 40 weeks gestation of pregnancy; Z37.0 Single live birth; R03.0 Elevated blood-pressure reading, without diagnosis of hypertension